=== PATIENT | female | born 1990 | race Caucasian/White ===

== ENCOUNTER 2017-09-10 17:15 | Emergency (ER) | payer OTHER ==
[~2017-09-10] VITALS: Ht 170.2 cm; Wt 116.1 kg
--- NOTE | 2017-09-10 17:31 | NUR ---
Patient ambulated to bed 5. RN evaluating patient at bedside.
[2017-09-10 17:37] VITALS: BP 127/71
--- NOTE | 2017-09-10 17:50 | NUR ---
27 yo f bib self following referal over from urgent care w/ c/o pulsating abd pain to her lower abd that radiates bilaterally to the lower back/flank area x 2 days to "rule out appendicitis or tubal ". pt denies vomiting/d/fever/chills. pt aaox4. gcs 15. cms intact. rr even and unlabored. lungs clear. abd soft, non-tender. er md notified. pt needs met. safety precautions in place. will continue to monitor.
--- NOTE | 2017-09-10 18:01 | NUR ---
Dr. Montoya evaluating patient at bedside.
[2017-09-10] MEDS ORDERED: NACL 0.9% 1,000 ML IV SCH (18:13)
[2017-09-10] MEDS ORDERED: KETOROLAC 30 MG/ML VIAL IVP ONE (18:15)
--- NOTE | 2017-09-10 18:15 | NUR ---
PT GIVEN 3 JUICE BOXES, PER PT REQUEST, IN ORDER TO FILL BLADDER TO OBTAIN URINE SPECIMEN.
--- NOTE | 2017-09-10 18:45 | NUR ---
PT GIVEN A CUP OF WATER AND ANOTHER JUICE BOX AT THIS TIME TO FILL BLADDER FOR U/S AND ALSO FOR URINE SPECIMEN. IV FLUIDS STARTED. WILL RE-ASSESS.
[2017-09-10 18:53] LABS: BASOPHILS % (AUTO) 0.4 % (0.0-2.0); EOSINOPHILS # (AUTO) 0.2 K/uL (0-0.4); EOSINOPHILS % (AUTO) 1.6 % (0.0-4.0); HEMOGLOBIN 13.1 g/dL (12.0-16.0); LYMPHOCYTES # (AUTO) 2.8 K/uL (2.5-16.5); LYMPHOCYTES % (AUTO) 29.2 % (20.5-51.1); MEAN CORPUSCULAR HEMOGLOBIN 28 pg (27-31); MEAN CORPUSCULAR HGB CONC 32 g/dL (33-37); MONOCYTES # (AUTO) 0.7 K/uL (0.8-1.0); NEUTROPHILS # (AUTO) 5.9 K/uL (1.8-7.7); NEUTROPHILS % (AUTO) 61.8 % (42.2-75.2); PLATELET COUNT (AUTO) 229 K/uL (140-450); RED BLOOD CELL COUNT(AUTO) 4.66 MIL/uL (4.20-5.40); RED CELL DISTRIBUTION WIDTH 14.2 % (11.6-13.7); WHITE BLOOD COUNT (AUTO) 9.5 K/uL (4.8-10.8)
[2017-09-10 19:06] LABS: PROTHROMBIN TIME 9.9 secs (10.8-13.4)
[2017-09-10 19:08] LABS: ALBUMIN 3.7 g/dL (3.4-5.0); CARBON DIOXIDE 26.3 mmol/L (21-32); POTASSIUM 3.3 mmol/L (3.5-5.1); TOTAL BILIRUBIN 0.4 mg/dL (0.0-1.0)
--- NOTE | 2017-09-10 19:10 | NUR ---
Pt report given to YANELIS Latif. Transfer of care at this time.
--- NOTE | 2017-09-10 19:15 | NUR ---
PT IS SITTING UP IN BED VITALS STABLE.
--- NOTE | 2017-09-10 19:16 | NUR ---
U/S AT BEDSIDE AT THIS TIME.
--- NOTE | 2017-09-10 20:20 | NUR ---
pt resting comfortably in [facility] at this time watching movies on her phone at this time w/ vss and rr even and unlabored. safety precautions in place. will continue to monitor
[2017-09-10 20:34] LABS: APPEARANCE,URINE CLEAR (CLEAR); BILIRUBIN,URINE NEGATIVE (NEGATIVE); BLOOD, URINE NEGATIVE (NEGATIVE); COLOR,URINE YELLOW (YELLOW); LEUKOCYTE ESTERASE ,URINE NEGATIVE (NEGATIVE); NITRITE, URINE NEGATIVE (NEGATIVE); PH,URINE 5.5 (5.0-9.0); UGLUCOSE NEGATIVE (NEGATIVE)
== END 2017-09-10 17:31 | disposition home or self-care (01) ==
LOC: MED 17:15
DX: O26.891 Other specified pregnancy related conditions, first trimester (principal); R10.31 Right lower quadrant pain; Z3A.01 Less than 8 weeks gestation of pregnancy
CPT/HCPCS: 36415; 76856; 80053; 81003; 81025; 82150; 83690; 84702; 84703; 85025; 85610; 85730; 86900; 86901; 96374; 99285; J1885; Q0092

== ENCOUNTER 2017-09-11 16:27 | Emergency (ER) | payer OTHER ==
[~2017-09-11] VITALS: Ht 170.2 cm; Wt 116.1 kg
[2017-09-11 16:32] VITALS: BP 121/87
[2017-09-11 19:11] VITALS: BP 125/85
== END 2017-09-11 19:11 | disposition home or self-care (01) ==
LOC: MED 16:27
DX: O26.891 Other specified pregnancy related conditions, first trimester (principal); F48.8 Other specified nonpsychotic mental disorders; Z3A.01 Less than 8 weeks gestation of pregnancy; Z88.2 Allergy status to sulfonamides
CPT/HCPCS: 36415; 84702; 99283